=== PATIENT | male | born 1990 | race Caucasian/White ===

== ENCOUNTER 2016-12-06 20:15 | Emergency (ER) | payer SELFPAY ==
[2016-12-06 20:20] VITALS: TEMP 98.7
[2016-12-06 20:44] VITALS: BMI 20.2
[2016-12-06] MEDS ORDERED: NS 1,000 ML IV ONE (21:22)
[2016-12-06] MEDS ORDERED: Vancomycin HCl 0 MG in D5W 500 ML IV ONE (21:23)
--- NOTE | 2016-12-06 21:25 | EDPRACDOC ---
- General Information Stated Complaint: BUMP/BUG BITE ON BACK Time Seen by Provider: 12/06/16 21:16 Information Source: Patient Home Medications: Home Medications CloNIDine (Antihypertensive) [Catapres] 0.1 mg PO Q6H PRN #20 tab 01/31/16 Promethazine [Phenergan] 25 mg PO Q8H PRN #30 tab 01/31/16 Cephalexin Monohydrate [Keflex] 500 mg PO QID #28 cap 12/06/16 Permethrin 60 gm TP DAILY #60 cream..g. 12/06/16 Sulfamethoxazole/Trimethoprim [Bactrim Ds Tablet] 1 tab PO BID #14 tab 12/06/16 Allergies/Adverse Reactions: Allergies Allergy/AdvReac Type Severity Reaction Status Date / Time No Known Allergies Allergy Verified 01/30/16 22:43 - History of Present Illness Onset: 1 week HPI: Pt c/o abscess to R upper back x 1 week. C/o chills, pain, and rash to arms, legs, trunks. 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 Denies cp, sob, abd pain, n/v, red streaking. Location: Reports: Back Relevent History Of: Reports: IV Drug Use Prior Abscess: Reports: Different Pain: Reports: Moderate Quality: Reports: Painful, Red Associated Signs & Symptoms: Reports: Chills ED Past Medical History - History Reviewed Yes Nurses notes reviewed and agree except as marked - Patient Medical History Cardiac History: Reports: Hypertension, Congestive Heart Failure, Hypercholesterolemia Systemic History: Reports: Diabetes Surgical History: Reports: Tonsillectomy/Adnoidectomy - Social Medical History Smoking Status: Heavy tobacco smoker (5 or more cigarettes/day or daily pipe/ cigar) ETOH: None Substance Abuse: Illicit Drugs EDM Review of Systems - Review of Systems Constitutional: Chills. negative: No Symptoms Reported, Fever, Fatigue, Loss of Appetite, Weakness Respiratory: No Symptoms Reported. negative: Cough, Brassy Cough, Barky Cough, Shortness of Breath, Wheezing, Hemoptysis Cardiovascular: No Symptoms Reported. negative: Chest Pain, Palpitations, Syncope, Edema, Orthopnea, PND, Skin Mottling, Cyanosis Gastrointestinal: No Symptoms Reported. negative: Pain, Constipation, Nausea, Vomiting, Diarrhea, Melena, Formula Intolerance Genitourinary: No Symptoms Reported. negative: Dysuria, Hematuria, Frequency, Discharge, Bleeding, Testicular Pain, Neurological: No Symptoms Reported. negative: Headache, Dizziness, Seizure, Numbness, Weakness, Speech Difficulty, Gait Difficulty Musculoskeletal: Back Integumentary: Rash, Wound Allergic/Immunologic: No Symptoms Reported. negative: Hives, Itching Hematologic: No Symptoms Reported. negative: Lymphadenopathy, Easy Bruising, Easy Bleeding Psychiatric: No Symptoms Reported. negative: Anxiety, Depression, Hallucinations, Insomnia, Suicidal - Physical Exam Constitutional: Alert Oriented to: Time, Person, Place Last recorded Vital Signs: Last Vital Signs Temp 98.7 F 12/06/16 20:19 Pulse 123 H 12/06/16 21:19 Resp 20 12/06/16 21:19 BP 160/79 12/06/16 21:19 Pulse Ox 96 12/06/16 21:19 Oxygen Pulse Oxygen Saturation 96 O2 Device Room Air Oxygen Flow Rate Fraction of Inspired Oxygen ( FIO2) - HEENT Head: Normal ( normocephalic) Eye Exam: Normal (PERRL, EOMI, Sclera white) Neck: Normal (FROM, trachea at midline) - Respiratory/Cardiovascular Respiratory: Normal - CTA (BBS clear to auscultation without adventitious sounds ) Cardiovascular: Tachycardia - GI Auscultation: Normal (NABS) Palpation: Normal (Soft,No rebound or guarding, non distended) Tenderness: Non tender - Musculoskeletal Back: Normal (Non-Tender) Extremities: Normal (Normal tone, Pulses 2+ No cyanosis or edema, FROM) - Integumentary Skin: Rash (red papules to arms, legs, trunk) Lymphatics: Normal (no adenopathy) - Neurologic Memory Impaired: Normal Motor Function: Normal (Normal tone, Pulses 2+ No cyanosis or edema, FROM) Mood Description: Normal Perception: Normal ED Abscess/Mass Exam - Integumentary Skin: Rash Mass: Red, Tender, Fluctuant, Pustule, Local Cellulitis Lymphatics: Normal - Differential Diagnosis Abscess, Cellulitis - Results 12/06/16 21:43 12/06/16 21:43 - Additional Information Additional Information: Pt evaluated by josefina Rowan to d/c home, return tomorrow for recheck Decision Time to Discharge: 22:41 - Departure Disposition: Home Condition: Stable Final Diagnosis: Cutaneous abscess of back excluding buttocks, Scabies Instructions: Scabies (ED), Incision and Drainage of Abscess Education/Counseling Given To: Patient Education/Counseling Given Regarding: Diagnosis, Treatment, Follow Up Referrals: None,No Provider [Primary Care Provider] - One Week Rei Boyd II, MD [Staff Physician] - One Week Prescriptions: New Cephalexin Monohydrate [Keflex] 500 mg PO QID #28 cap Permethrin 60 gm TP DAILY #60 cream..g. Sulfamethoxazole/Trimethoprim [Bactrim Ds Tablet] 1 tab PO BID #14 tab No Action CloNIDine (Antihypertensive) [Catapres] 0.1 mg PO Q6H PRN #20 tab PRN Reason: Withdrawal Symptoms Promethazine [Phenergan] 25 mg PO Q8H PRN #30 tab PRN Reason: Nausea/Vomiting Additional Instructions: Return to ED tomorrow for recheck of abscess. Keep wound clean and dry, apply warm compresses to affected area 20 mins at a time 4 - 5 times daily, return to the ED for any worsening symptoms or concerns.
[2016-12-06 21:54] LABS: AUTOMATED BASOPHIL 0.5 % (0-2); AUTOMATED EOSINOPHIL 0.6 % (0-5); AUTOMATED LYMPH 17.2 % (17-44); AUTOMATED MONOCYTE 6.7 % (3-10); MPV 6.6 fL (7.4-10.4)
[2016-12-06 22:08] LABS: BLOOD UREA NITROGEN 10 MG/DL (9-20); CALCIUM 8.7 MG/DL (8.4-10.2); CALCULATED OSMOLALITY 258 MOs/Kg (270-290); CHLORIDE 94 mEq/L (98-107); GLUCOSE 123 mg/dL (70-99); SODIUM LEVEL 134 mEq/L (137-146); TOTAL PROTEIN 7.8 G/DL (6.3-8.2)
[2016-12-06 22:38] VITALS: BP 152/102; PULSE 119
[2016-12-06] MEDS ORDERED: MORPHINE 4 MG/ML INJECTION IV ONE (22:38)
== END 2016-12-06 23:04 | disposition home or self-care (01) ==
LOC: EDMC 20:15
DX: L02.212 Cutaneous abscess of back [any part, except buttock and flank] (principal); B86 Scabies
CPT/HCPCS: 36415; 80053; 83605; 85025; 87040; 87070; 87075; 87077; 87186; 96361; 96365; 96375; 99283; J2270; J3370; J3490; J7070